=== PATIENT | male | born 1990 | race Caucasian/White ===

== ENCOUNTER 2016-07-06 20:12 | Emergency (ER) | payer MEDICAID ==
[~2016-07-06] VITALS: Ht 177.8 cm; Wt 99.5 kg
[~2016-07-06 20:12] MED LIST: NO MEDS TAKEN
[2016-07-06 20:13] VITALS: Ht 177.8 cm; Wt 99.5 kg
[2016-07-06] MEDS ORDERED: ONDANSETRON 4 MG INJ IV STA (20:41)
[2016-07-06] MEDS ORDERED: morphine 4 MG/ML VIAL IV STA (20:41)
[2016-07-06] MEDS ORDERED: LIDOCAINE 2% VISC 15 ML CUP PO ONE (21:00)
[2016-07-06] MEDS ORDERED: ACETAMINOPHEN 650MG/20.3ML CUP NGT ONE (21:00)
[2016-07-06] MEDS ORDERED: DIPHENHYDRAMINE 2.5 MG/ML 5ML CUP PO ONE (21:00)
[2016-07-06] MEDS ORDERED: LORAZEPAM 2 MG INJ IV ONE (21:00)
--- NOTE | 2016-07-06 21:34 | RADRPT ---
PROCEDURE: CT facial bones without contrast CLINICAL INDICATION: Post traumatic facial bone pain. TECHNIQUE: A CT of the face without contrast was performed utilizing axial sections from the good ble through the orbits. Coronal and sagittal images were also reformatted. The exam CTDIvol = 29.54 mGy and DLP = 610.20 mGy-cm. COMPARISON: None available. FINDINGS: Frontal bone: Intact with the sinuses clear bilaterally. No fracture is present. Ethmoid bone: Intact, the sinuses are clear. Maxilla: Intact, the sinuses are clear bilaterally. Nasal bones: Intact bilaterally. Zygomata: Intact bilaterally. Sphenoid bone: Intact, the sinuses are clear. Mandible: In the midline and along the anterior aspect is a nondisplaced fracture lucency best seen on the sagittal series with displacement of the right lateral incisor. The lucency involving the c entral incisor roots is present likely reflecting 23 loosening. The mandibular condyles are bilater ally anteriorly translated without dislocation or additional mandible fracture. Temporal bones: Visualized portions are unremarkable. The mastoid air cells are clear. Soft tissues: Unremarkable. RPTAT:HJJR IMPRESSION: 1. Concern for an acute nondisplaced fracture of the midline mandible at the symphysis menti with di splacement of the right lateral incisor and loosening of the central incisors. 2. No additional facial bone fractures are evident. Physician Jacqueline Date Time Electronically viewed and signed by Physician Jacqueline on 07/06/2016 21:33 /
[2016-07-06] MEDS ORDERED: HYDROmorphONE 1 MG/ML SYG IV STA (23:08)
[2016-07-06 23:28] VITALS: BP 110/75; PULSE 75; RESP 17
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
== END 2016-07-06 23:28 | disposition short-term general hospital (02) ==
LOC: FTE 20:12
DX: S02.66XA Fracture of symphysis of mandible, initial encounter for closed fracture (principal); Y08.89XA Assault by other specified means, initial encounter
CPT/HCPCS: 70486; J1170; J2060; J2270; J2405; Z7610; 96374; 96375